=== PATIENT | male | born 1980 | race Caucasian/White ===

== ENCOUNTER 2016-06-25 15:36 | Emergency (ER) | payer SELFPAY ==
--- NOTE | 2016-06-25 17:01 | EDPRACDOC ---
- General Information Stated Complaint: COUGHING WITH RIB PAIN MUSCLE TIGHTNESS Time Seen by Provider: 06/25/16 16:54 Home Medications: Home Medications Amoxicillin Trihydrate [Amoxicillin] 500 mg PO TID #21 tab 06/25/16 Ibuprofen Tablet [Motrin] 800 mg PO TID PRN #30 tab 06/25/16 Promethazine Dextromethorphan [Phenergan DM] 5 ml PO Q6 PRN #120 ml 06/25/16 Allergies/Adverse Reactions: Allergies Allergy/AdvReac Type Severity Reaction Status Date / Time No Known Allergies Allergy Verified 04/13/16 16:55 - History of Present Illness Onset: 3 DAYS HPI: PT COMPLAINS OF COUGH PROD OF CLEAR PHLEGM, NO FEVER OR CHILLS, STATES SHARP, STABBING PAIN IN RIGHT RIBS WITH COUGH, STATES MUSCLES FEEL "TIGHT". PT STATES HE NEEDS A NOTE FOR WORK TODAY Current Symptoms: Reports: Cough, Nasal Symptoms, Myalgia Shortness of Breath: None Cough: Reports: Productive, White Rhinorrhea: Denies: Clear, Bloody, Brown, Green, Purulent, None, O Ear Symptoms: Reports: None Fever Severity/Quality: Reports: no fever Oral Intake: Normal Urinary Output: Normal Relevant History of: None Associated Signs & Symptoms:: Reports: Cough, Nasal Symptoms, Myalgia ED Past Medical History - History Reviewed Yes Nurses notes reviewed and agree except as marked - Patient Medical History Cardiac History: Reports: Syncope Psychological History: Denies: Depression, Substance Use Disorder Additional Past Medical History: CEREBAL PALSY Surgical History: Reports: Other (ATRIAL septal defect repair as child.) - Family Medical History Reports: Hypertension (Mother), Diabetes (Mother), Cardiac Disorders (Coronary artery disease in mother.) - Social Medical History Smoking Status: Heavy tobacco smoker (5 or more cigarettes/day or daily pipe/ cigar) Social History: Denies: Substance Use Disorder EDM Review of Systems - Review of Systems Constitutional: negative: Chills, Fever Eyes: negative: Blurred Vision, Double Vision Ears: negative: Drainage Throat: negative: Pain Nose: Congestion. negative: Discharge Respiratory: Cough, Wheezing. negative: Shortness of Breath Cardiovascular: negative: Chest Pain Gastrointestinal: negative: Diarrhea, Vomiting Neurological: negative: Headache - Physical Exam Constitutional: Alert (Awake), No apparent distress Oriented to: Time, Person, Place Last recorded Vital Signs: Oxygen Pulse Oxygen Saturation O2 Device Oxygen Flow Rate Fraction of Inspired Oxygen ( FIO2) - HEENT Head: Normal ( normocephalic) Eye Exam: Normal (PERRL, EOMI, Sclera white) Oropharynx: Normal (Pharynx:Moist without exudate,Gums-no swelling) Tympanic Membrane: Normal ENT EAC: Normal TMJ: Normal Nose: No Symptoms Reported (septum midline) Neck: Normal (FROM, trachea at midline) - Respiratory/Cardiovascular Respiratory: Wheezes. negative: Accessory Muscle Use, Retractions Cardiovascular: Normal (RRR without murmur, gallop or rub) - Musculoskeletal Back: Normal (Non-Tender) Extremities: Normal (Normal tone, Pulses 2+ No cyanosis or edema, FROM) - Integumentary Skin: Normal, Warm, Dry Lymphatics: Normal (no adenopathy) - Neurologic Memory Impaired: Normal Motor Function: Normal (Normal tone, Pulses 2+ No cyanosis or edema, FROM) Cranial Nerve: Normal (CN II-X11 intact sensation, strength 5/5) Cerebellar: Normal Mood Description: Normal Perception: Normal - Differential Diagnosis Bronchitis, Pneumonia Decision Time to Discharge: 17:01 - Departure Disposition: Home Condition: Stable Final Diagnosis: Acute bronchitis Qualifiers: Bronchitis organism: unspecified organism Qualified Code(s): J20.9 - Acute bronchitis, unspecified Instructions: Acute Bronchitis (ED) Education/Counseling Given To: Patient Education/Counseling Given Regarding: Diagnosis, Treatment, Prognosis, Follow Up Referrals: Jose Schulz MD [Staff Physician] - One Week Prescriptions: Amoxicillin Trihydrate [Amoxicillin] 500 mg PO TID #21 tab Ibuprofen Tablet [Motrin] 800 mg PO TID PRN #30 tab PRN Reason: Pain Promethazine Dextromethorphan [Phenergan DM] 5 ml PO Q6 PRN #120 ml PRN Reason: Cough Forms: Excuse Note Additional Instructions: Rest, drink plenty of fluids, use Tylenol every 4 hours and Motrin every 6 hours as needed for pain or fever, return to the ED for any worsening symptoms or concerns.
[2016-06-25 17:02] VITALS: BP 107/51; PULSE 89; TEMP 98.6; BMI 19.2
== END 2016-06-25 17:17 | disposition home or self-care (01) ==
LOC: EDMC 15:36
DX: J20.9 Acute bronchitis, unspecified (principal)
CPT/HCPCS: 99282

== ENCOUNTER 2016-07-20 10:55 | Emergency (ER) | payer SELFPAY ==
[2016-07-20 11:20] VITALS: TEMP 98; BMI 19.1
--- NOTE | 2016-07-20 11:53 | DIRPT ---
CLINICAL DATA: Right-sided pain EXAM: CHEST 2 VIEW COMPARISON: February 25, 2016 FINDINGS: There is stable mild elevation of the left hemidiaphragm. There is no edema or consolidation. Heart size and pulmonary vascularity are normal. No adenopathy. Fusion of portions of the left fourth and fifth ribs remain stable. No pneumothorax. IMPRESSION: No edema or consolidation. Stable elevation of the left hemidiaphragm. No change in cardiac silhouette. Electronically Signed By: Brenden Rangel III, M.D. On: 07/20/2016 11:50
--- NOTE | 2016-07-20 11:58 | EDPRACDOC ---
- General Information Chief Complaint: Chest Pain Stated Complaint: CP Time Seen by Provider: 07/20/16 11:38 Information Source: Patient Mode of Arrival: Ambulance Home Medications: Home Medications No Home Medications 07/20/16 Allergies/Adverse Reactions: Allergies Allergy/AdvReac Type Severity Reaction Status Date / Time No Known Allergies Allergy Verified 07/20/16 11:20 - History of Present Illness Onset: 10:15 HPI: PT PRESENTS WITH SUDDEN ONSET SHARP CENTRAL CHEST PAIN THAT BEGAN WHILE WALKING TO WORK THIS MORNING. PAIN IMPROVED WITH TIME. Chest Pain Location: Reports: Substernal Pain Radiation: Reports: Back Symptoms Occur: Reports: With light exertion Cardiac Risk Factors: Denies: Hyperlipidemia, Hypertension, Diabetes Cardiac History of: Reports: None PE Risk Factors: Reports: None Medications within 24 Hours: Reports: None Pain Came On: Reports: Suddenly Pain Status: Resolved Pain Description: Reports: Sharp, Aching Pain Severity: Moderate Pain Improves With: Reports: Rest Associated Signs and Symptoms: Reports: SOB. Denies: Palpitations, Vomiting ED Past Medical History - History Reviewed Yes Nurses notes reviewed and agree except as marked - Patient Medical History Neurological History: Reports: Other (CP) Cardiac History: Reports: Syncope Psychological History: Denies: Depression, Substance Use Disorder Additional Past Medical History: CEREBAL PALSY Surgical History: Reports: Other (ATRIAL septal defect repair as child.) - Family Medical History Reports: Hypertension (Mother), Diabetes (Mother), Cardiac Disorders (Coronary artery disease in mother.) - Social Medical History Smoking Status: Heavy tobacco smoker (5 or more cigarettes/day or daily pipe/ cigar) Social History: Denies: Other Substance Use Lives In: Home EDM Review of Systems - Review of Systems ROS Negative Except as Marked: Yes All systems reviewed and were negative except as marked - Physical Exam Last recorded Vital Signs: Last Vital Signs Temp 98 F 07/20/16 11:09 Pulse 87 07/20/16 11:09 Resp 18 07/20/16 11:09 BP 122/73 07/20/16 11:09 Pulse Ox 95 07/20/16 11:09 Oxygen Pulse Oxygen Saturation 95 O2 Device Room Air Oxygen Flow Rate Fraction of Inspired Oxygen ( FIO2) - Action ASA given in the ED: No - Results 07/20/16 11:45 07/20/16 11:45 - EKG EKG #1 EKG Time: 11:04 -: Yes EKG interpreted by me Rate: bpm: 78 Rhythm: NSR ST: Nonsp Decision Time to Discharge: 13:34 - Departure Yes I personally saw and evaluated the patient. Disposition: Home Condition: Stable Final Diagnosis: Chest pain Qualifiers: Chest pain type: unspecified Qualified Code(s): R07.9 - Chest pain, unspecified Instructions: Chest Pain (ED), Chest Wall Pain (ED) Education/Counseling Given To: Patient Education/Counseling Given Regarding: Diagnosis, Treatment, Prognosis, Follow Up Referrals: None,No Provider [Primary Care Provider] - One Week Prescriptions: No Action No Home Medications 0 NA DIR #0 info Forms: Excuse Note
[2016-07-20 11:59] LABS: AUTOMATED BASOPHIL 0.8 % (0-2); AUTOMATED EOSINOPHIL 3.6 % (0-5); AUTOMATED LYMPH 34.6 % (17-44); AUTOMATED MONOCYTE 8.4 % (3-10); AUTOMATED NEUTROPHIL 52.6 % (45-76); MPV 7.9 fL (7.4-10.4)
[2016-07-20 12:14] LABS: PARTIAL THROMB. TIME 30.3 SEC (22-35); PT-INR 1.2
[2016-07-20 12:22] LABS: BLOOD UREA NITROGEN 14 MG/DL (9-20); CALCIUM 9.2 MG/DL (8.4-10.2); CALCULATED OSMOLALITY 276 MOs/Kg (270-290); CHLORIDE 103 mEq/L (98-107); GLUCOSE 99 mg/dL (70-99); SODIUM LEVEL 143 mEq/L (137-146); TOTAL PROTEIN 7.9 G/DL (6.3-8.2)
[2016-07-20 13:57] VITALS: BP 114/67; PULSE 71
== END 2016-07-20 13:56 | disposition home or self-care (01) ==
LOC: ED 10:55
DX: R07.9 Chest pain, unspecified (principal)
CPT/HCPCS: 36415; 71020; 80053; 83880; 84484; 85025; 85610; 85730; 93005; 99284